=== PATIENT | female | born 1990 | race Caucasian/White ===

== ENCOUNTER 2022-08-22 14:25 | Emergency (ER) | payer MEDICAID ==
[~2022-08-22] VITALS: Ht 154.9 cm; Wt 73.9 kg
[2022-08-22 14:58] VITALS: BP 137/88
--- NOTE | 2022-08-22 18:45 | NUR ---
PATIENT LEFT WITHOUT BEING SEEN BY DR. Carter. NO FURTHER CARE PROVIDED FOR PATIENT.
--- NOTE | 2022-08-22 18:45 | NUR ---
Called - no show in lobby and outside.
== END 2022-08-22 18:45 | disposition left against medical advice (07) ==
LOC: MED 14:25
DX: R51.9 Headache, unspecified (principal); R20.0 Anesthesia of skin; Z53.21 Procedure and treatment not carried out due to patient leaving prior to being seen by health care provider